=== PATIENT | female | born 1990 | race Two or more races ===

== ENCOUNTER 2023-01-21 08:54 | Emergency (ER) | payer OTHER ==
[~2023-01-21] VITALS: Ht 160 cm; Wt 64.4 kg
== END 2023-01-21 12:06 | disposition home or self-care (01) ==
LOC: ER 08:54
DX: D69.6 Thrombocytopenia, unspecified (principal)

== ENCOUNTER 2023-01-28 06:02 | Emergency (ER) | payer OTHER ==
[~2023-01-28] VITALS: Ht 160 cm; Wt 63.5 kg
== END 2023-01-28 11:10 | disposition home or self-care (01) ==
LOC: ER 06:02
PROVIDERS: General Practice
DX: O26.893 Other specified pregnancy related conditions, third trimester (principal); L29.8 Other pruritus; L30.8 Other specified dermatitis; Z3A.38 38 weeks gestation of pregnancy

== ENCOUNTER 2023-01-31 17:48 | Inpatient (IN) | payer OTHER ==
[~2023-01-31] VITALS: Ht 160 cm; Wt 64.0 kg
[2023-01-31] MEDS ORDERED: PRENATAL TABLE1 EAC6 PO (18:58)
[2023-01-31] MEDS ORDERED: VITAMIN B122500 MC1 (18:58)
[2023-01-31] MEDS ORDERED: INTEGRA PLUS C1 EACH PO (18:59)
[2023-02-04] MEDS ORDERED: DOCUSATE SODIU100 MG PO (07:55)
[2023-02-04] MEDS ORDERED: IBUPROFEN800 MG PO (07:55)
== END 2023-02-04 14:20 | disposition home or self-care (01) | DRG 787 ==
LOC: LDR 17:48 → OB/GYN 02-02 04:03
PROVIDERS: ADMIT Student in an Organized Health Care Education/Training Program; ATTEND Student in an Organized Health Care Education/Training Program
PROC: 3E0P7VZ Introduction of Hormone into Female Reproductive, Via Natural or Artificial Opening (ICD-10-PCS; 2023-01-31)
PROC: 4A1HXCZ Monitoring of Products of Conception, Cardiac Rate, External Approach (ICD-10-PCS; 2023-01-31)
PROC: 3E033VJ Introduction of Other Hormone into Peripheral Vein, Percutaneous Approach (ICD-10-PCS; 2023-02-01)
PROC: 10D00Z1 Extraction of Products of Conception, Low, Open Approach (ICD-10-PCS; principal; 2023-02-02)
DX: O61.0 Failed medical induction of labor (principal); O99.12 Other diseases of the blood and blood-forming organs and certain disorders involving the immune mechanism complicating childbirth; D69.6 Thrombocytopenia, unspecified; Z3A.38 38 weeks gestation of pregnancy; Z37.0 Single live birth; Z20.822 Contact with and (suspected) exposure to COVID-19